=== PATIENT | female | born 1995 | race Caucasian/White ===

== ENCOUNTER 2022-10-28 14:45 | Outpatient (CLI) | payer BC, SELFPAY ==
--- NOTE | ~2022-10-28 | US_ITS ---
EXAMINATION: US pelvic complete w TV DATE: 10/28/2022 15:12 INDICATION: Pelvic and perineal pain. TECHNIQUE: Multiple transabdominal and transvaginal sonographic images of the pelvis were obtained. COMPARISON: None. FINDINGS: TRANSABDOMINAL ULTRASOUND: The uterus measures 6.8 x 3.9 x 4.6 cm. There is no free fluid in the pelvis. TRANSVAGINAL ULTRASOUND: The endometrial complex measures 4 mm in thickness. The right ovary measures 2.8 x 1.8 x 1.6 cm. The left ovary measures 3.1 x 1.2 x 1.6 cm. There is normal vascular flow in the ovaries. IMPRESSION: 1. Normal pelvis. Reviewed, dictated and finalized at location A. D OPERATOR IMPRESSION: 1. Normal pelvis.
== END 2022-10-28 14:46 ==
PROVIDERS: PCP Family Medicine; Visit Provider Student in an Organized Health Care Education/Training Program
DX: R10.2 Pelvic and perineal pain (principal)
CPT/HCPCS: 76830; 76856

== ENCOUNTER 2022-12-07 00:38 | Day surgery (SDC) | payer BC, SELFPAY ==
[2022-11-29 08:27] VITALS: BMI 27.3
--- NOTE | 2022-11-29 08:32 | PC.NURSE ---
Report to the Outpatient Waiting Room, entrance under the green pavilion located off [facility], at time 0600 on date 12/07/22. Planned Procedure Time: 0730. Time changes happen often and if your time is changed the preop area will call you the afternoon before. - You and your visitor will be asked to self-screen and do not enter if you have any COVID symptoms. - Only one visitor is requested with a max of two and NO children visitors are allowed at this time. - The patient visitor may be requested to leave or wait in car when not with patient due to distancing restrictions. - A mask is optional within the hospital at this time. Patients may have clear liquids (water, carbonated beverages, clear teas, apple juice) until 3 hours prior to surgery with a maximum of 20 ounces. - No food from midnight until time of surgery Take the following medications with a SIP of water the morning of surgery: N/A DO NOT STOP ANY OF YOUR OTHER PRESCRIPTION MEDICATIONS PRIOR TO SURGERY EXCEPT THE FOLLOWING Medications to discontinue per physician: N/A Date to take last dose: N/A Please no make-up, nail italian, hairspray, perfume, deodorant, or body powder the day of surgery. No jewelry (including any body piercings) or valuables the day of surgery, leave them at home. Please take a shower or bath the night before, or the morning of, surgery with an antibacterial soap. Wear comfortable, loose fitting clothing. - Jewelry must be removed prior to entering the operating room. Rings and piercings that are not removed may be cut off. - The hospital will not accept responsibility for valuables. - Please leave all valuables, including medications, at home the day of surgery. If you are going home after surgery, a licensed sales driver must drive you home. - NO public transportation without another adult if you receive anesthesia. - We recommend that an adult stay with you for 24 hours following discharge. - We also recommend that you do not drive, make important decision, drink alcoholic beverages, or take any drugs that were not prescribed by your health care provider for at least 24 hours after your discharge time. Follow any additional instructions given to you from your surgeon. If you or anyone in your household have experienced Covid symptoms in the past week, please notify your surgeon or the nurse liaison at the phone number below for possible testing. Telephone instructions given to PT - JONATHON FARRAR and asked if any additional questions and then verbalized understanding. Patient advised to call surgeon office or pre surgery nurse liaison [phone] if any additional questions.
[2022-12-07] VITALS (8 sets, daily range): BP systolic 99–121; BP diastolic 53–84; PULSE 64–79; RESP 12–20; TEMP 36.2–36.4; O2SAT 100
[2022-12-07] MEDS: ACETAMINOPHEN 500 MG TABLET 1000 MG PO (06:30)
[2022-12-07] MEDS: KETOROLAC 15 MG/ML VIAL (*BKC) IV PUSH (06:30)
[2022-12-07] MEDS: LACTATED RINGERS 1,000 ML 30 ML IV CONT ×2 (06:30→09:38)
--- NOTE | 2022-12-07 06:38 | P.PNAN_ITS ---
Anes - Initial Pre Proc Eval Procedure: Operation Date: 12/07/22 07:30 Proposed Procedures p Diagnostic Laparoscopy - Eb Ferrera MD Date/Time: 12/07/22 06:38 Surgeon: Eb Ferrera MD Pre Op Diagnosis: Pelvic Perineal Pain Patient Data Age: 27 Gender: F Height: 1.57 m Weight: 68 kg Allergies Allergy/AdvReac Type Severity Reaction Status Date / Time No Known Allergies Allergy Unverified 11/29/22 08:26 Home Medications Medication Instructions Recorded Confirmed Type No Home Medications 11/29/22 11/29/22 History Patient hx anesthesia problems: post op nausea/vomiting Family hx anesthesia problems: none Results Review: All pre-operative results and documents have been reviewed as part of the pre- operative evaluation. [facility] Past Medical History Medical History Irregular periods Surgical History Surgical History History of gynecological procedure (05/09/22) nexplanon removal and reinsertion of new device Hx of cholecystectomy (~10/09/16) Social History Social History (Updated 06/15/22 @ 14:51 by Sis Thacker [facility]) Smoking packs per day: 0.5 Smoking cigarettes per day: 10.0 Years smoked: 5 Smoking pack-years: 2.50 Smoking status: Current every day smoker Tobacco type: cigarettes and e-cigarettes/vaping Additional smoking assessment comments: QUIT CIGARETTES 10/09/21, NOW VAPING Alcohol intake: current Drinks per week: 2 Substance use: never Substance use type: does not use Living arrangements: with family Additional living arrangements comments: BOYFRIEND & CHILDREN Occupation/Education: occupation Additional occupation/education comments: [email or web address] Gender identity (if verbalized by the patient): Female Sexual Orientation (if Verbalized by the Patient): Straight or Heterosexual Spiritual care concerns: No Anes - Eval Final PreProcedure Day of Procedure 12/07/22 06:38 Patient weight: overweight Heart: regular rate and rhythm Lungs: clear to auscultation Airway: Mallampati scale class III Neurological: alert and oriented Last oral intake: >/= 8 hours ASA classification: II Emergent: no Anesthetic plan: proceed Anesthesia type and monitoring: general ETT and standard monitoring Results Review: All pre-operative results and documents have been reviewed as part of the pre- operative evaluation. Informed Consent: The patient's anesthetic plan and its attendant risks and benefits were discussed with the patient/family/POA. Questions were solicited and answers provided to the satisfaction of the patient/family/POA.
[2022-12-07] MEDS: SCOPOLAMINE 1.5 MG PATCH TRANSDERM (06:49)
--- NOTE | 2022-12-07 07:10 | WPDHPUPDATE1 ---
History and Physical Update Update Date/Time: 12/07/22 07:10 History and Physical has been reviewed, including an updated exam of the patient. There are NO changes in the patient's condition. Risks, benefits, and alternatives have been discussed and questions answered. Patient agrees to proceed with procedure.
--- NOTE | 2022-12-07 09:45 | W.PM.PROC2 ---
Procedure Note - Detailed Date of Procedure 12/07/22 Pre-op Diagnosis Pelvic Perineal Pain Post-op Diagnosis Same ( endometriosis) Procedure Performed radical resection of endometriosis Surgeon Eb Ferrera MD Anesthesia General Indications pelvic pain Findings multiple endometriosis implants in the posterior cul-de-sac. Classic endometriosis with dark clusters of hemorrhagic tissue with surrounding scarring and vascularity, otherwise normal appearing uterus tubes and ovaries. Description of Procedure The patient was taken to the operating room. She was prepped and draped in the dorsal lithotomy position after induction general anesthesia. A 5 mm incision was made with a scalpel on the abdominal skin in the left upper quadrant of the abdomen. A 5 mm trocar was inserted into the intra-abdominal cavity under direct visualization the scope. In the same fashion a 5 mm left lower quadrant trocar was inserted and a 5 mm infraumbilical trocar was inserted. The ovaries were suspended. This was done using Alex-Araceli Endoclose needle and 0 Vicryl. The bilateral lower quadrants were pierced with the Alex-Araceli needle while being transilluminated. They were carrying an 0 Vicryl suture which was passed through the ovary bilaterally brought back out through the same incision/puncture site. They were held in place on the skin surface with a hemostat. A SEBASTIAN manipulator was placed in the intrauterine cavity using speculum and tenaculum. It was anteflexed. This revealed the entire posterior cul-de-sac clearly. The posterior cul-de-sac peritoneum was removed completely With the exception of the deepest cul-de-sac areas which were fulgurated And the peritoneum over the rectum. From the infundibulopelvic ligament and suspensory ligament ovary laterally to the rectum medially the peritoneum was caudal cephalad dimension was from the pelvic brim down to the uterine arteries Then cervix. This was done with sharp and blunt dissection and cautery. The ureters were dissected out and isolated. Areas in the deepest posterior cul-de-sac were cauterized. There was some endometriotic lesions in this area.Small in the broad ligament were created and dissection. These were closed with a 3-0 Monocryl suture The pelvis was irrigated. Copious amounts of irrigation were used. Interceed was placed over the dissected areas bilaterally. Two pieces were used. The pneumoperitoneum was reduced. The trocars were removed. Skin was closed with subcuticular 4 micro. The patient's incisions were covered with Dermabond. She was taken recovery room in stable condition. Sponge lap and needle counts were correct x2. Estimated Blood Loss -75.0 Urine Output -100.0 Complications No immediate complications Condition Stable Disposition Same day
[2022-12-07] MEDS: ONDANSETRON INJ 4 MG/2 ML VIAL IV PUSH (09:49)
[2022-12-07] MEDS: fentaNYL CITRATE INJ (*CRX) 100 MCG/2 ML VIAL 25 MCG IV PUSH ×5 (10:00→10:24)
[2022-12-07] MEDS: diphenhydrAMINE HCl INJ 50 MG/ML VIAL 25 MG IV PUSH (10:05)
== END 2022-12-07 11:38 | disposition home or self-care (01) ==
PROVIDERS: PCP Family Medicine; Visit Provider Obstetrics & Gynecology
PROC: (CPT 49320; principal; 2022-12-07 07:30)
DX: N80.329 Endometriosis of the posterior cul-de-sac, unspecified depth (principal); N80.30 Endometriosis of pelvic peritoneum, unspecified; R10.2 Pelvic and perineal pain; F17.290 Nicotine dependence, other tobacco product, uncomplicated
CPT/HCPCS: 58662; 88305; A9270; J0330; J1100; J1200; J1885; J2250; J2405; J2704; J2710; J3010; J7030; J7120

== ENCOUNTER 2022-12-29 22:15 | Inpatient (IN) | payer BC, SELFPAY ==
--- NOTE | ~2022-12-29 | CT_ITS ---
CT of the Abdomen and Pelvis: Indication: Abdominal pain, recent surgery for endometriosis Technique: 2.5 mm axial scans were obtained through the abdomen and pelvis following intravenous adm inistration of 100 cc of Omnipaque 350. Dose reduction technique was used on this scan by utilizing a utomated exposure control and iterative reconstruction technique. The dose-length product (DLP) was 4 27.34 mGy-cm. Findings: Scans through the lung bases are unremarkable. The liver, spleen, pancreas, adrenals and left kidney are within normal limits. 2 mm nonobstructing r ight renal stone noted. Mildly dilated common bile duct is likely related to prior cholecystectomy. N o evidence of aortic aneurysm. No lymphadenopathy. There is wall thickening of the distal sigmoid colon/rectum, presumably reactive. No bowel obstructio n evident. Images through the pelvis were performed. There is a 5.7 x 4.1 x 2.7 cm peripherally enhancing fluid collection with small air-fluid level in the pelvis consistent with abscess, which appears to be at t he lower uterine segment region. There is rounded somewhat masslike appearance of the region of the c ervix, measuring approximately 6 cm in diameter (axial image 154). Urinary bladder is somewhat displa marcy anteriorly, but otherwise unremarkable. Uterine fundus is unremarkable. There is mild infiltratio n of pelvic fat planes. Impression: 5.7 x 4.1 x 2.7 cm pelvic abscess, with extensive wall thickening of the distal sigmoid colon/rectum, as well as somewhat prominent masslike appearance of the cervical region. Diagnostic considerations include postoperative abscess given history of recent endometriosis surgery with reactive bowel wall thickening versus abscess related to underlying primary infectious/inflammatory colitis of the rectum /distal sigmoid colon. Correlate with any relevant clinical symptoms/history. Correlation with precis e timeframe of reported recent surgery would also be useful. Somewhat masslike appearance of the cervix. This could reflect postoperative change including possibl e hematoma. 2 mm nonobstructing right renal stone. Reviewed, dictated and finalized at location . Impression: 5.7 x 4.1 x 2.7 cm pelvic abscess, with extensive wall thickening of the distal sigmoid colon/rectum, as well as somewhat prominent masslike appearance of the cervical region. Diagnostic considerations include postoperative abscess given history of recent endometriosis surgery with reactive bowel wall thickening ve rsus abscess related to underlying primary infectious/inflammatory colitis of t he rectum/distal sigmoid colon. Correlate with any relevant clinical symptoms/h istory. Correlation with precise timeframe of reported recent surgery would als o be useful. Somewhat masslike appearance of the cervix. This could reflect postoperative ch elizabeth including possible hematoma. 2 mm nonobstructing right renal stone.
[2022-12-29 22:30] VITALS: PULSE 126
[2022-12-29 22:36] VITALS: BP 120/72; PULSE 145; RESP 18; TEMP 37.6; O2SAT 100
--- NOTE | 2022-12-29 22:44 | ECG_ITS ---
Measurements Intervals [place] Rate: 125 P: 40 NC: 112 QRS: 34 QRSD: 81 T: 20 QT: 308 QTc: 445 Interpretive Statements SINUS TACHYCARDIA WITH SHORT NC INTERVAL BORDERLINE T WAVE ABNORMALITY- INFERIOR LEADS BASELINE ARTIFACT- III ABNORMAL ECG NO PREVIOUS ECG AVAILABLE FOR COMPARISON Electronically Signed On 12-30-2022 6:36:43 CDT by Sherman Wallace D.O.
[2022-12-29 22:51] LABS: Hematocrit 42.9 % (37.0-47.0); Hemoglobin 14.6 g/dL (12.0-15.0); Mean Corpuscular Hemoglobin 31.9 pg (26-34); Mean Corpuscular Volume 93.7 fl (80-100); Mean Platelet Volume 8.7 fl (7.4-10.4); Platelet Count Result 302 k/mm3 (150-375); Red Blood Count 4.58 M/mm3 (4.2-5.4); Red Cell Distribution Width 11.4 % (11.5-14.5); White Blood Count 23.9 K/mm3 (4.5-10.0)
[2022-12-29 23:03] LABS: Alanine Aminotransferase 59 U/L (6-35); Albumin Level 4.6 g/dL (3.5-5.1); Alkaline Phosphatase 133 U/L (38-126); Anion Gap 12 mmol/L (8-16); Aspartate Amino Transferase 54 U/L (14-36); Bilirubin,Total 1.4 mg/dL (0.2-1.3); Blood Urea Nitrogen 8 mg/dL (7-17); Calcium 9.1 mg/dL (8.4-10.2); Carbon Dioxide 22 mmol/L (22-30); Chloride 104 mmol/L (98-107); Estimated Glomerular Filt Rate > 60; Glucose 117 mg/dL (65-110); Lipase 40 U/L (23-300); Potassium 3.7 mmol/L (3.4-5.0); Sodium 138 mmol/L (137-145)
[2022-12-29 23:34] LABS: Band Neutrophils Percent 5 % (0-6); Eosinophils Absolute Manual 0.71 K/mm3 (0.02-0.5); Eosinophils Percent Manual 3 % (0-4); Lymphocytes Absolute Manual 1.67 K/mm3 (1.1-4.5); Metamyelocytes Percent 2 %; Monocytes Absolute Manual 1.67 K/mm3 (0.1-0.90); Monocytes Percent Manual 7 % (3-9); Neutrophils Absolute Manual 19.35 K/mm3 (1.7-7.2); Neutrophils Percent Manual 76 % (46-73); Platelet Estimate Adequate (Adequate); Total Cells Counted 100
[2022-12-29 23:35] LABS: Macrocytosis 2+ (NORMAL); Schistocytes None Seen (NORMAL); Spherocytes 2+ (NORMAL)
[2022-12-30] VITALS (22 sets, daily range): BP systolic 81–120; BP diastolic 37–81; PULSE 75–117; RESP 16–20; TEMP 36.4–38.6; O2SAT 80–100; BMI 27.8
[2022-12-30] MEDS: ONDANSETRON INJ 4 MG/2 ML VIAL IV PUSH ×4 (01:51→23:04)
[2022-12-30] MEDS: MORPHINE SULFATE (*CRX) 4 MG/ML INJ IV PUSH (01:51)
[2022-12-30] MEDS: SODIUM CHLORIDE 0.9% IV 1,000 ML 999 ML IV CONT ×2 (01:52→06:51)
[2022-12-30 02:29] LABS: Lactic Acid Reflex 1.6 mmol/L (0.7-2.0)
[2022-12-30 03:05] LABS: Appearance Urine Cloudy (Clear); Bacteria Urine 2+ /hpf; Bilirubin Urine 2+ (Negative); Blood Urine Negative (Negative); Color Urine Dark Yellow (Yellow); Glucose Urine UA Negative (Negative); Ketones Urine 3+ mg/dL (Negative); Leukocyte Esterase Ur 1+ LEU/UL (Negative); Mucus Urine Present /lpf; Nitrate Urine Negative (Negative); Protein Urine 1+ mg/dL (Negative); Specific Grav Ur 1.033 (1.001-1.035); Squamous Epithelial Cell Urine Moderate /hpf (Few); WBC Urine 21-50 /hpf; pH Urine 5.5 (5.0-9.0)
[2022-12-30 03:08] LABS: Add Urine Microscopic? YES
--- NOTE | 2022-12-30 03:57 | ED.GENADULT ---
HPI - General Adult General Chief complaint: Abdominal Pain Stated complaint: post op pain Time Seen by Provider: 12/30/22 01:34 History of Present Illness HPI narrative: Patient is a 27-year-old female who presents the emergency department with chief complaint of abdominal pain. Patient reports that she had recent surgery for endometriosis and has been taking pain medications the patient states she feels as though she was constipated and saw GI today patient reports that she had a rectal exam done that she did not show that she was impact and reports that she has continued to have severe abdominal discomfort. Patient reports she does get a lot of urinary tract infections Related Data Allergies Allergy/AdvReac Type Severity Reaction Status Date / Time No Known Allergies Allergy Verified 12/29/22 14:32 Review of Systems Review of Systems: A 10 system review of systems was completed on the patient and is negative except for what is stated in the HPI. Nursing and ancillary documentation was reviewed. PMFSH Past Medical History Medical History Constipation due to opioid therapy Endometriosis determined by laparoscopy Irregular periods Surgical History Surgical History History of gynecological procedure (05/09/22) nexplanon removal and reinsertion of new device Hx of cholecystectomy (~10/09/16) Social History Social History Smoking packs per day: 0.5 Smoking cigarettes per day: 10.0 Years smoked: 5 Smoking pack-years: 2.50 Smoking status: Current every day smoker Tobacco type: cigarettes and e-cigarettes/vaping Additional smoking assessment comments: QUIT CIGARETTES 10/09/21, NOW VAPING Alcohol intake: current Drinks per week: 2 Substance use: never Substance use type: does not use Living arrangements: with family Additional living arrangements comments: BOYFRIEND & CHILDREN Occupation/Education: occupation 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 HEAD: Normocephalic, atraumatic. EYES: PERRLA and EOMI. ENT: Nares clear, no rhinorrhea or epistaxis. Mucous membranes moist. NECK: Supple. CHEST: Clear to auscultation. No respiratory distress. HEART: Regular rate and rhythm. No murmur heard. Normal peripheral pulses. ABDOMEN: Soft, diffuse tenderness throughout the abdomen, nondistended, normal active bowel sounds. EXTREMITIES: Normal range of motion. No edema. SKIN: Warm, dry, no rash. NEURO: No focal deficits. Alert and oriented x3. PSYCH: Normal mood and affect. Course Vital Signs Vital signs: Vital Signs Pulse Rate 126 H 12/29/22 22:30 Temperature 37.6 C 12/29/22 22:36 Pulse Rate 117 H 12/30/22 01:55 Respiratory Rate 20 12/30/22 01:55 Blood Pressure 98/67 L 12/30/22 01:55 Pulse Oximetry 99 12/30/22 01:55 Oxygen Delivery Room Air 12/29/22 22:36 Medical Decision Making [facility] Narrative Medical decision making narrative: Differential diagnosis includes intra-abdominal abscess, colitis, diverticulitis, UTI, pyelonephritis, ureterolithiasis Laboratory studies showed a white blood cell count of 23.9 patient had a normal lactate liver enzymes were slightly elevated with an AST of 54 and an ALT of 59 bilirubin was 1.4 urinalysis showed 21-50 white blood cells in the urine with 2+ bacteria and 1+ leukocyte esterase CT scan of the abdomen pelvis showed evidence of a abscess present causing mass effect on the uterus. Patient was initially given a dose of Rocephin in the emergency department as she had a UTI present on h
[2022-12-30] MEDS: PIPERACILLN/TAZ 3.375GM/NS50ML 3.375 GM/50 ML BAG IVPB ×2 (05:45→11:27)
[2022-12-30] MEDS: PROCHLORPERAZINE EDISYLATE 10 MG/2 ML VIAL IV PUSH (05:45)
[2022-12-30] MEDS: HYDROmorphone HCL INJ (*CRX) 1 MG/ML SYR IV PUSH (05:45)
[2022-12-30] MEDS: SODIUM CHLORIDE 0.9% IV 1,000 ML 125 ML IV CONT (06:41)
--- NOTE | 2022-12-30 07:05 | PM.IMHP ---
H&P: HPI History of Present Illness Date/Time: 12/30/22 07:05 Chief Complaint: lower back pain Narrative: Betina Shrestha is a 27 yo female with recent radial resection endometriosis on 12/07/[address] Reyes. She presented to the ED for evaluation of abdominal pain. The patient was seen by Dr. Kraus yesterday 12/29/22 for evaluation of similar complaints and concern for constipation. Rectal exam was negative for impaction. She was prescribed Linzess and 4-6 week follow up. She reports the pain is sharp and aching in her lower back and radiates to her buttock region. She has associated right and left lower abdomen pain that has been present since her surgery. She reports fever for approximately 3 days, temp max 101F oral, chills, malaise, myalgias, nausea, vomiting, decrease oral intake for the past 2 days, hot sensation with urination and urinary frequency. She has had 2 hard stools since surgery on 12/07/22 and has taken a laxative chocolate bar, x-lax, other OTC stool softners, mag citrate, and suppository with some liquid stool in the past 24 hours. Of note, she had been taking oxycodone and toradol PO following surgery, but is no longer taking. Fevers improve with OTC acetaminophen. In the ED, vitals were temp 37.6C oral, HR 117, RR 20, BP 98/67, spO2 99% room air. Lab work showed leukocytosis 23.9, Tbili 1.4, AST 54, ALT 59, alk phos 133, UA with 1+ leukocytes, WBC 21-50, 2+ bacteria, and moderate squamous cells. CT abdomen and pelvis 5.7 x4.1 x2.7 cm pelvic abscess with extensive wall thickening of distal sigmoid colon/rectum with masslike appearance of cervix suggesting possible postop abscess versus abscess related to colitis and 2 mm nonobstructing right renal stone. She was treated with IV NS 1 liter, zofran 4 mg IV x1, compazine 10 mg IV x1, Rocephin 1 gram IV x1 for possible UTI, and Zosyn 3.375 IV x1. She was admitted for IV antibiotics for sepsis and abdominal abscess. Review of Systems Review of Systems: All systems reviewed & are unremarkable except as noted in HPI and below PMFSH Past Medical History Medical History (Updated 12/30/22 @ 14:25 by Leonel Valenzuela MD) Asthma In childhood, resolved. Constipation Constipation due to opioid therapy Endometriosis determined by laparoscopy Irregular periods Nausea and vomiting in adult Pelvic pain Surgical History Surgical History (Updated 12/30/22 @ 10:50 by Corrina Chun APRN) History of gynecologic surgery Radical resection of endometriosis 12/07/22 History of gynecological procedure (05/09/22) nexplanon removal and reinsertion of new device Hx of cholecystectomy (~10/09/16) Family History Family History (Updated 12/30/22 @ 10:50 by Corrina Chun APRN) Mother Multiple sclerosis Social History Social History (Updated 12/30/22 @ 10:51 by Corrina Chun APRN) Smoking packs per day: 0.5 Smoking cigarettes per day: 10.0 Years smoked: 5 Smoking pack-years: 2.50 Smoking status: Former smoker Tobacco type: cigarettes and e-cigarettes/vaping Smoking end date: 10/09/21 Additional smoking assessment comments: QUIT CIGARETTES 10/09/21, NOW VAPING Alcohol intake: current Drinks per week: 2 Alcohol use details: social Substance use: never Substance use type: does not use Lack of Transportation: No Lack of Food: Never True Current Housing: I Have Housing Concerned About Future Housing: No Difficulty Paying Gas/Electric Bills: No Difficulty Paying for Meds: No Currently Unemployed: No Education: High School Diploma/GED Difficulty w/ Childcare or Family Care: No Living arrangements: with family Additional living arrangements comments: Lives with boyfriend and children Occupation/Education: occupation 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
[2022-12-30 08:33] LABS: CRP 23.7 mg/dL (<1.0)
[2022-12-30 08:40] LABS: Procalcitonin 7.4 ng/mL
--- NOTE | 2022-12-30 08:49 | PC.NURSE ---
Upon change of shifts, pt was given 1000mL bolus due to decreased BP. At completion of bolus, pt's BP was 95/55. Provider notified. Instructed to check vitals Q4 and PRN including the use of manual BP.
[2022-12-30] MEDS: KETOROLAC 30 MG/ML VIAL (*BKC) IV PUSH (12:45)
--- NOTE | 2022-12-30 13:17 | PC.NURSE ---
Pt was complaining of 9/10 pain. Pt's most recent BP was 91/64. Only pain med currently available was 2mg morphine. Hospitalist contacted for orders. Orders given to administer one time dose of 30mg Tordol. Upon assessing pt, I observed her face and eyes were edematous. Pt was c/o being hot and having chills simultaneously. I took pt's temp which was 99.8.
--- NOTE | 2022-12-30 14:17 | WPDGICN ---
Assessment and Plan Assessment and plan (1) Abscess of pelvis: Status: Acute Assessment and Plan: most likely from recent surgical intervention interventional radiology to attempt drainage pilot supervisor-onc will reassess patient iv antibiotics no need of colonoscopy at least right now (findings of inflammation of sigmoid is related to pelvic infection) (2) Pelvic pain: Code(s): R10.2 - Pelvic and perineal pain Status: Acute Assessment and Plan: pelvic abscess and previous history of endometriosis with surgery (3) Nausea and vomiting in adult: Code(s): R11.2 - Nausea with vomiting, unspecified Status: Acute Assessment and Plan: medical treatment (4) Endometriosis determined by laparoscopy: Code(s): N80.9 - Endometriosis, unspecified Status: Acute (5) Leukocytosis: Code(s): D72.829 - Elevated white blood cell count, unspecified Status: Acute (6) Transaminitis: Code(s): R74.01 - Elevation of levels of liver transaminase levels Status: Acute Assessment and Plan: from systemic infection (7) Constipation: Code(s): K59.00 - Constipation, unspecified Status: Acute Assessment and Plan: multifactorial from pelvic surgery/infection with abscess/narcotics, etc GI Consult Note Consult date/time: 12/30/22 14:17 Reason for consult: pelvic pain and constipation HPI: Betina Shrestha is a 27 year old female with recent radical resection endometriosis on 12/07/[address] Reyes (findings of multiple endometriosis implants in the posterior cul-de-sac.? Classic endometriosis with dark clusters of hemorrhagic tissue with surrounding scarring and vascularity, otherwise normal appearing uterus tubes and ovaries) Patient says since surgery has slowly feeling worse with more pelvic pain and actually yesterday she came to see me to the office because new onset of constipation (has been using laxatives and other OTC laxatives at home), only had 2 BM's since surgery (previous to surgery she was not having problem with constipation). I performed rectal exam and did not feel stool impaction and gave sample of linzess (patient used oxy twice daily for first week afer surgery). She never had a colonoscopy or previous history of GI issues. She took one dose of linzess and then had more pelvic pain, also says that has been having low grade fever (yesterday in the office her temperature was normal 98). Finally she came to the ED, fever 101F oral, also chills and nausea with vomiting, HR 117. Lab work showed leukocytosis 23.9, Tbili 1.4, AST 54, ALT 59, alk phos 133, UA with 1+ leukocytes, WBC 21-50, 2+ bacteria, and moderate squamous cells. CT abdomen and pelvis 5.7 x4.1 x2.7 cm pelvic abscess with extensive wall thickening of distal sigmoid colon/rectum with masslike appearance of cervix suggesting possible postop abscess versus abscess related to colitis and 2 mm nonobstructing right renal stone. Patient was admitted, given iv antibiotics and pain meds. Review of Systems Constitutional: Constitutional: Reports chills, Reports fatigue and Reports fever(s) Eyes: Eyes: Denies blurry vision ENT: Reports Normal hearing present Cardiovascular: Cardiovascular: Denies chest pain Respiratory: Respiratory: Denies cough Gastrointestinal: Gastrointestinal: Reports abdominal pain and Reports nausea Genitourinary: Genitourinary: Reports pelvic pain Musculoskeletal: Musculoskeletal: Reports myalgias Integumentary/Breasts: Skin/Breast: Denies rash Neurologic: Denies Abnormal speech present Psychiatric: Psychiatric: Denies behavioral changes [facility] Past Medical History Medical History (Updated 12/30/22 @ 14:25 by Leonel Valenzuela MD) Asthma In childhood, resolved. Constipation Constipation due to opioid therapy Endometriosis determined by laparoscopy Irregular periods Nausea and vomiting in adult Pelvic pain Surgical History Surgical H
--- NOTE | 2022-12-30 15:19 | WPDANESEPPF ---
Anes - Initial Pre Proc Eval Procedure: Operation Date: 12/30/22 16:30 Proposed Procedures p Diagnostic Laparoscopy - Eb Ferrera MD Date/Time: 12/30/22 15:19 Surgeon: Chris Aj MD Pre Op Diagnosis: Colitis,Pelvic Abscess,Leukocytosis Patient Data Age: 27 Gender: F Height: 1.57 m Weight: 69.1 kg Last Vital Signs Temp 38.6 C H 12/30/22 13:25 Pulse 114 H 12/30/22 13:25 Resp 17 12/30/22 13:25 BP 90/68 L 12/30/22 14:55 Pulse Ox 96 12/30/22 13:25 O2 Del Method Room Air 12/30/22 08:10 Allergies Allergy/AdvReac Type Severity Reaction Status Date / Time No Known Allergies Allergy Verified 12/30/22 06:46 Home Medications Medication Instructions Recorded Confirmed Type No Home Medications 12/30/22 12/30/22 History Laboratory Tests 12/29/22 12/29/22 12/30/22 22:45 22:45 01:30 WBC 23.9 K/mm3 H K/mm3 (4.5-10.0) RBC 4.58 M/mm3 M/mm3 (4.2-5.4) Hgb 14.6 g/dL g/dL (12.0-15.0) Hct 42.9 % % (37.0-47.0) MCV 93.7 fl fl (80-100) MCH 31.9 pg pg (26-34) MCHC 34.0 g/dl g/dl (32-36) RDW 11.4 % L % (11.5-14.5) Plt Count 302 k/mm3 k/mm3 (150-375) MPV 8.7 fl fl (7.4-10.4) Immature Gran % (Auto) Not Reportable Neut % (Auto) Not Reportable Lymph % (Auto) Not Reportable [place] % (Auto) Not Reportable Eos % (Auto) Not Reportable Baso % (Auto) Not Reportable Lymph # (Auto) Not Reportable [place] # (Auto) Not Reportable Eos # (Auto) Not Reportable Baso # (Auto) Not Reportable Abs Immat Gran (auto) Not Reportable Absolute Neuts (auto) Not Reportable Absolute Nucleated RBC Not Reportable Total Counted 100 Neutrophils % (Manual) 76 % H % (46-73) Band Neutrophils % 5 % % (0-6) Lymphocytes % (Manual) 7.0 % L % (18-44) Monocytes % (Manual) 7 % % (3-9) Eosinophils % (Manual) 3 % % (0-4) Metamyelocytes % 2 % % Nucleated RBC % Not Reportable Abs Neuts (Manual) 19.35 K/mm3 H K/mm3 (1.7-7.2) Abs Lymphs (Manual) 1.67 K/mm3 K/mm3 (1.1-4.5) Abs Monocytes (Manual) 1.67 K/mm3 H K/mm3 (0.1-0.90) Absolute Eos (Manual) 0.71 K/mm3 H K/mm3 (0.02-0.5) Platelet Estimate Adequate (Adequate) Macrocytosis 2+ (NORMAL) Spherocytes 2+ (NORMAL) Schistocytes None seen (NORMAL) Sodium 138 mmol/L mmol/L (137-145) Potassium 3.7 mmol/L mmol/L (3.4-5.0) Chloride 104 mmol/L mmol/L (98-107) Carbon Dioxide 22 mmol/L mmol/L (22-30) Anion Gap 12 mmol/L mmol/L (8-16) BUN 8 mg/dL mg/dL (7-17) Creatinine 0.80 mg/dL mg/dL (0.7-1.0) Estim Creat Clear Calc Not Reportable Estimated GFR > 60 (59 - ) Glucose 117 mg/dL H mg/dL (65-110) Lactic Acid Calcium 9.1 mg/dL mg/dL (8.4-10.2) Total Bilirubin 1.4 mg/dL H mg/dL (0.2-1.3) AST 54 U/L H U/L (14-36) ALT 59 U/L H U/L (6-35) Alkaline Phosphatase 133 U/L H U/L (38-126) C-Reactive Protein Total Protein 8.0 g/dL g/dL (6.3-8.2) Albumin 4.6 g/dL g/dL (3.5-5.1) Lipase 40 U/L U/L (23-300) Procalcitonin Urine Color Dark yellow (Yellow) Urine Appearance Cloudy H (Clear) Urine pH 5.5 (5.0-9.0) Ur Specific [place] 1.033 (1.001-1.035) Urine Protein 1+ mg/dL H mg/dL (Negative) Urine Glucose (UA) Negative mg/dL mg/dL (Negative) Urine Ketones 3+ mg/dL H mg/dL (Negative) Ur Blood (Man) Negative (Negative
--- NOTE | 2022-12-30 15:26 | WPDHPUPDATE1 ---
History and Physical Update Update Date/Time: 12/30/22 15:26 27-year-old female with a pelvic abscess Who had laparoscopic surgery about 3 weeks ago. We have agreed to perform diagnostic laparoscopy. We will likely drain abscess and clear up some a adhesions. She understands the risks, benefits, and alternatives. She has completed the informed consent process is ready to proceed. History and Physical has been reviewed, including an updated exam of the patient. There are NO changes in the patient's condition. Risks, benefits, and alternatives have been discussed and questions answered. Patient agrees to proceed with procedure.
[2022-12-30] MEDS: LACTATED RINGERS 1,000 ML 30 ML IV CONT ×3 (15:40→17:44)
[2022-12-30] MEDS: ceFAZolin SODIUM 1 GM VIAL 3 GM (16:18)
--- NOTE | 2022-12-30 16:46 | W.PM.PROC2 ---
Procedure Note - Detailed Date of Procedure 12/30/22 Pre-op Diagnosis Colitis,Pelvic Abscess,Leukocytosis Post-op Diagnosis Same Procedure Performed Diagnostic laparoscopy Surgeon Eb Ferrera MD Anesthesia General Indications Pelvic pain Description of Procedure The patient was taken to the operating room. She was prepped and draped in the dorsal lithotomy position after induction general anesthesia. A 5 mm incision was made with a scalpel on the abdominal skin in the left upper quadrant of the abdomen. A 5 mm trocar was inserted into the intra-abdominal cavity under direct visualization the scope. In the same fashion a 5 mm left lower quadrant trocar was inserted and a 5 mm infraumbilical trocar was inserted. Adhesiolysis was performed down to the level of pelvis. It was mild easily broken down adhesions between the rectum and the left adnexa. The rectum was from the posterior aspect of the cervix. There was a collection of pus in the lower pelvis. This was drained and irrigated. Copious antibiotic irrigation was used to lavage the area of the abscess repetitively. The pelvis was irrigated. The pneumoperitoneum was reduced. The trocars were removed. Skin was closed with subcuticular 4 micro. The patient's incisions were covered with Dermabond. She was taken recovery room in stable condition. Sponge lap and needle counts were correct x2. Complications No immediate complications Condition Stable Disposition Same day
--- NOTE | 2022-12-30 17:46 | SUR.PHASEI ---
1730- Albina BRICK CHIMNEY SUPERVISOR notified of patient's sbp <90. instructed to give remainder of liter of LR.
[2022-12-30] MEDS: ACETAMINOPHEN 325 MG TABLET 650 MG PO (20:56)
[2022-12-30] MEDS: SODIUM CHLORIDE 0.9% IV 1,000 ML 100 ML IV CONT (23:04)
[2022-12-30] MEDS: PIPERACILLIN/TAZOBACTAM SOD 4.5 GM in SODIUM CHLORIDE 0.9% IV 100 ML 200 ML IVPB (23:05)
[2022-12-30] MEDS: MORPHINE SULFATE (*CRX) 2 MG/ML INJ IV PUSH (23:05)
[2022-12-31] VITALS (7 sets, daily range): BP systolic 92–107; BP diastolic 54–70; PULSE 64–99; RESP 16–18; TEMP 36.1–37.3; O2SAT 96–99
[2022-12-31] MEDS: PIPERACILLIN/TAZOBACTAM SOD 4.5 GM in SODIUM CHLORIDE 0.9% IV 100 ML 200 ML IVPB ×3 (06:11→17:27)
[2022-12-31 07:13] LABS: Basophils Percent Auto 0.2 % (0.2-1.2); Hematocrit 31.3 % (37.0-47.0); Hemoglobin 10.6 g/dL (12.0-15.0); Immature Granulocyte Absolute 0.14 K/mm3 (0.00-0.031); Immature Granulocyte Percent A 0.8 % (0-0.5); Lymphocytes Absolute Auto 0.97 K/mm3 (0.9-3.2); Lymphocytes Percent Auto 5.5 % (18.3-44.2); Mean Corpuscular HGB Conc 33.9 g/dl (32-36); Mean Corpuscular Hemoglobin 32.3 pg (26-34); Mean Corpuscular Volume 95.4 fl (80-100); Mean Platelet Volume 8.7 fl (7.4-10.4); Monocytes Absolute Auto 0.9 K/mm3 (0.1-0.6); Monocytes Percent Auto 4.8 % (2.6-8.5); Neutrophils Absolute Auto 15.6 K/mm3 (1.3-6.7); Neutrophils Percent Auto 88.7 % (45.5-73.1); Platelet Count Result 207 k/mm3 (150-375); Red Blood Count 3.28 M/mm3 (4.2-5.4); Red Cell Distribution Width 11.8 % (11.5-14.5); White Blood Count 17.6 K/mm3 (4.5-10.0)
[2022-12-31 07:37] LABS: Alanine Aminotransferase 26 U/L (6-35); Albumin Level 2.9 g/dL (3.5-5.1); Alkaline Phosphatase 81 U/L (38-126); Anion Gap 5 mmol/L (8-16); Aspartate Amino Transferase 15 U/L (14-36); Bilirubin,Total 0.5 mg/dL (0.2-1.3); Blood Urea Nitrogen 5 mg/dL (7-17); Calcium 7.5 mg/dL (8.4-10.2); Carbon Dioxide 22 mmol/L (22-30); Chloride 110 mmol/L (98-107); Estimated CRCL calculation 110 ml/min; Estimated Glomerular Filt Rate > 60; Glucose 115 mg/dL (65-110); Potassium 3.4 mmol/L (3.4-5.0); Sodium 137 mmol/L (137-145)
[2022-12-31] MEDS: ACETAMINOPHEN 325 MG TABLET 650 MG PO (08:21)
[2022-12-31] MEDS: MORPHINE SULFATE (*CRX) 2 MG/ML INJ IV PUSH (08:22)
--- NOTE | 2022-12-31 08:26 | PM.IMPN ---
Progress Note: A&P Assessment and Plan (1) Sepsis: Code(s): A41.9 - Sepsis, unspecified organism Status: Acute Assessment and Plan: HR 115, SBP 84, WBC 23, and CT abd/pelvis with concern for abdominal abscess from colitis versus recent surgery. Hypotension my be secondary to narcotics, but raises concerns for severe sepsis. Lactic acid 1.6 Given 1 L NS fluids in ED. Additional 1 L NS given upon admission to the floor for 30 mL/kg resuscitation. Continue aggressive IV hydration. Continue broad-spectrum IV antibiotics Vancomycin and Zosyn Monitor hemodynamics- VSS but BP soft Blood cultures without growth after 24 hours. (2) Abscess of pelvis: Status: Acute Assessment and Plan: Continue IV antibiotics Attempted IR percutaneous drain placement, however, per Radiology, given location would need transvaginal route. Discussed with Dr. Ferrera. Patient and boyfriend updated. POD1 laparoscopy with abscess drainage (3) Colitis: Code(s): K52.9 - Noninfective gastroenteritis and colitis, unspecified Status: Acute Assessment and Plan: GI consulted. Continue IV antibiotics. Colonoscopy not indicated at this time per GI. (4) Transaminitis: Code(s): R74.01 - Elevation of levels of liver transaminase levels Status: Acute Assessment and Plan: Likely secondary to dehydration and sepsis Trend LFTs Resolved and presumed secondary to hypotension and sepsis. (5) Abnormal urinalysis: Code(s): R82.90 - Unspecified abnormal findings in urine Status: Acute Assessment and Plan: UA with 1+ leukocytes, WBC 21-50, 2+ bacteria, and moderate squamous cells. Given many squamous cells likely contamination. Patient has lower abdominal pain and back pain worse on the right, but this is more likely secondary to abscess. Currently on broad spectrum IV antibiotics for above. Urine culture pending. Plan CODE STATUS: FULL CODE Disposition: patient is from home. Diet: Regular diet GI prophylaxis: PPI Antibiotic: Day 2 Time Spent With Patient Time with patient: 25 - 35 minutes Subjective Date/time seen: 12/31/22 08:26 She is feeling better today. Back and lower abdomen pain is improving. She denies fever, chills, rigors since surgery yesterday for abscess drainage. No BM this hospital stay. She denies N/V. Review of Systems Review of Systems: All systems reviewed & are unremarkable except as noted in HPI and below Exam Narrative: General: Mildly ill-appearing adult female. Lying in bed. Neuro/Psych: Awake, alert and oriented x4 with clear speech. Pleasant and cooperative. No focal sensory or motor deficits. CN 2-12 grossly intact. Skin: fair, warm, dry and intact without rashes or lesions. No open wounds. Poor turgor.?Multiple tattoos. HEENT: Sclera is non-icteric. Pupils equal and round. Oral mucosa pink and moist. Neck: Supple. No JVD. Heart: S1 and S2 regular rate and rhythm. No murmurs, gallops, or rubs auscultated. Chest: Respirations even and unlabored. Lung sounds are clear to auscultation without wheezes, rhonchi, or rales. Abdomen: Soft, mildly distended, diffusely tender to palpation Lap sites x3 open to air with dermabond. Extremities:? No edema, erythema or calf tenderness. Grossly normal ROM. Radial and dorsalis pedis pulses +2 bilaterally. Objective Data Vital Signs Vital Signs: Vital Signs - 24 hr 12/30/22 11:30 12/30/22 12:56 12/30/22 13:25 Temperature 98.7 F 99.8 F H 101.5 F H Pulse Rate 104 H 114 H Respiratory Rate 16 17 Blood Pressure 91/64 L 81/55 L Pulse Oximetry 100 96 Oxygen Delivery Oxygen Flow Rate 12/30/22 14:55 12/30/22 15:35 12/30/22 16:39 Temperature 99.1 F 97.6 F Pulse Rate 97 99 Respiratory Rate 16 18 Blood Pressure 90/68 L 93/57 L 96/65 L Pulse Oximetry 98 100 Oxygen Delivery Room Air Simple Face Mask Oxygen Flow Rate 8 12/30/22 16:45 12/30/22 17:00 12/30/22 17:15
--- NOTE | 2022-12-31 08:33 | PM.GYNPNOP ---
UX RESEARCHER - A/P Assessment and plan (1) Pelvic abscess: Status: Acute Assessment and Plan: improved pain, improved malaise, continuing IV antibiotics, good pain control, postop day 1 from laparoscopic incision and drainage of pelvic abscess with adhesiolysis and lavage of abscess cavity with antibiotic irrigation. Much improved clinically with the exception of a white count. Postoperative Procedures: Procedures Operation Date: 12/30/22 16:30 Actual Procedure Side Surgeon p Diagnostic Laparoscopy Not Applicable Eb Ferrera MD Postoperative day: 1 Postoperative status: doing well Postoperative plan: see orders Time Spent With Patient Time: Total time spent is greater than 50% in coordination of care (as documented) at patient's floor/unit and/or counseling patient: Time with patient: 15 - 25 minutes UX RESEARCHER- PN:Anthony Post-Op Subjective Date/time seen: 12/31/22 08:33 Subjective: patient reports feeling better, patient has no complaints and pain is well controlled Exam Const: General: healthy appearing, comfortable and no acute distress Resp: Auscultation: clear to auscultation bilaterally, no rales, no rhonchi and no wheezes Cardio: Rate: regular rate Heart sounds: no click, no murmurs and no rubs GI: Inspection: non-distended Auscultation: normal bowel sounds Extrem: General: normal to inspection, no pedal edema and no calf tenderness UX RESEARCHER - PN: Obj Data Vital Signs Vital Signs: Vital Signs - 24 hr 12/30/22 11:30 12/30/22 12:56 12/30/22 13:25 Temperature 98.7 F 99.8 F H 101.5 F H Pulse Rate 104 H 114 H Respiratory Rate 16 17 Blood Pressure 91/64 L 81/55 L Pulse Oximetry 100 96 Oxygen Delivery Oxygen Flow Rate 12/30/22 14:55 12/30/22 15:35 12/30/22 16:39 Temperature 99.1 F 97.6 F Pulse Rate 97 99 Respiratory Rate 16 18 Blood Pressure 90/68 L 93/57 L 96/65 L Pulse Oximetry 98 100 Oxygen Delivery Room Air Simple Face Mask Oxygen Flow Rate 8 12/30/22 16:45 12/30/22 17:00 12/30/22 17:15 Temperature Pulse Rate 85 83 84 Respiratory Rate 18 17 17 Blood Pressure 93/55 L 94/66 L 87/62 L Pulse Oximetry 100 96 96 Oxygen Delivery Simple Face Mask Room Air Room Air Oxygen Flow Rate 8 12/30/22 17:30 12/30/22 17:45 12/30/22 18:00 Temperature Pulse Rate 87 82 82 Respiratory Rate 17 16 16 Blood Pressure 83/52 L 85/61 L 90/59 L Pulse Oximetry 95 80 L 94 Oxygen Delivery Room Air Room Air Room Air Oxygen Flow Rate 12/30/22 18:15 12/30/22 18:30 12/30/22 18:45 Temperature 97.5 F L 97.8 F Pulse Rate 75 95 98 Respiratory Rate 16 17 17 Blood Pressure 89/65 L 97/64 L 91/56 L Pulse Oximetry 94 93 93 Oxygen Delivery Room Air Oxygen Flow Rate 12/30/22 19:30 12/30/22 20:30 12/31/22 00:30 Temperature 98.3 F 98.2 F 99.1 F Pulse Rate 100 104 H 99 Respiratory Rate 20 16 16 Blood Pressure 114/81 101/70 107/61 Pulse Oximetry 96 95 96 Oxygen Delivery Oxygen Flow Rate 12/31/22 05:54 Temperature 97.6 F Pulse Rate 82 Respiratory Rate 18 Blood Pressure 93/62 L Pulse Oximetry 98 Oxygen Delivery Oxygen Flow Rate Intake/Output Intake/Output: Intake & Output 12/28/22 12/29/22 12/30/22 12/31/22 23:59 23:59 23:59 23:59 Intake Total 4950 350 Output Total 25 Balance 4925 350 Meds/Results Medications: Active Medications Generic Name Dose Route Start Last Admin Trade Name Freq PRN Reason Stop Dose Admin Acetaminophen 650 mg 12/30/22 14:00 12/31/22 08:21 Acetaminophen 325 Mg Tablet PO 650 mg Q6H RIA Administration Bisacodyl 5 mg 12/31/22 08:24 Bisacodyl 5 Mg Tablet Ec PO QAM PRN Constipation Sodium Chloride 1,000 mls @ 125 mls/hr 12/30/22 05:25 12/31/22 08:04 Normal Saline Iv IV CONT Not Given .Q8H RIA Vancomycin HCl 1,250 mg in 250 mls @ 166.667 mls/hr 12/30/22 20:00 12/31/22 08:10 Vancomycin 1,250 Mg/D5w 250 Ml IVPB 0 mls/hr Q12H RIA Infusion Piperacillin Sod/Tazo
[2022-12-31] MEDS: HYDROcodone/acetaminophen (*CRX) 5-325 MG TABLET 1 TAB PO ×2 (15:11→21:21)
[2022-12-31] MEDS: SODIUM CHLORIDE 0.9% IV 1,000 ML 125 ML IV CONT (15:11)
[2022-12-31 19:53] LABS: Vancomycin Trough 14.1 ug/mL (10.0-20.0)
--- NOTE | 2022-12-31 20:33 | WPDGIPROGNO ---
Progress Note: A&P Assessment and Plan (1) Sepsis: Code(s): A41.9 - Sepsis, unspecified organism Status: Acute Assessment and Plan: treated and much better since surgery on antibiotics will [place], call if questions (2) Pelvic abscess: Status: Acute Assessment and Plan: drained by moth exterminator, successful procedure (3) Nausea and vomiting in adult: Code(s): R11.2 - Nausea with vomiting, unspecified Status: Acute Assessment and Plan: resolved now she is eating (4) Abdominal pain: Code(s): R10.9 - Unspecified abdominal pain Status: Acute Assessment and Plan: much better (5) Leukocytosis: Code(s): D72.829 - Elevated white blood cell count, unspecified Status: Acute (6) Constipation: Code(s): K59.00 - Constipation, unspecified Status: Acute Assessment and Plan: from infection and surgery I will anticipate that will back to her normal soon follow-up only as needed Subjective Date/time seen: 12/31/22 20:33 Interval history: she is doing much better after surgery and drain of abscess, eating and less pain. She is comfortable Review of Systems Review of Systems: All systems reviewed & are unremarkable except as noted in HPI and below Exam Const: General: healthy appearing, comfortable and no acute distress HENMT: Face/Nose/Sinus: Normal nares present Eyes: General: appearance normal, both eyes and all related structures Neck: Neck: supple Resp: Auscultation: clear to auscultation bilaterally, no rales, no rhonchi and no wheezes Cardio: Rate: regular rate Heart sounds: no click, no murmurs and no rubs GI: Inspection: non-distended GI Palp: Yes Soft to palpation, No Tenderness to palpation present (GI) and No Guarding due to palpation present (GI) Auscultation: normal bowel sounds Skin: General skin exam: normal color Neuro: Speech: normal speech Motor exam (neuro): 5/5 motor strength present throughout Extrem: General: normal to inspection, no pedal edema and no calf tenderness Psych: Affect: normal affect Objective Data Vital Signs Vital Signs: Vital Signs - 24 hr 12/31/22 00:30 12/31/22 05:54 12/31/22 08:20 Temperature 99.1 F 97.6 F Pulse Rate 99 82 Respiratory Rate 16 18 Blood Pressure 107/61 93/62 L Pulse Oximetry 96 98 Oxygen Delivery Room Air 12/31/22 10:00 12/31/22 14:00 12/31/22 18:00 Temperature 97 F L 97 F L 97 F L Pulse Rate 93 64 73 Respiratory Rate 17 17 17 Blood Pressure 94/69 L 94/68 L 96/70 L Pulse Oximetry 98 99 99 Oxygen Delivery Intake/Output Intake/Output: Intake & Output 12/28/22 12/29/22 12/30/22 12/31/22 23:59 23:59 23:59 23:59 Intake Total 4950 2950 Output Total 25 Balance 4925 2950 Meds/Results Medications: Active Medications Generic Name Dose Route Start Last Admin Trade Name Freq PRN Reason Stop Dose Admin Acetaminophen 650 mg 12/31/22 10:57 Acetaminophen 325 Mg Tablet PO Q4H PRN Mild Pain (1-3) or Fever Hydrocodone Bitart/Acetaminophen 1 tab 12/31/22 10:55 12/31/22 15:11 Hydrocodone/Acetaminophen (*Crx) 5-325 Mg Tablet PO 1 tab Q4H PRN Administration Pain Rated 4-6 Bisacodyl 5 mg 12/31/22 08:24 Bisacodyl 5 Mg Tablet Ec PO QAM PRN Constipation Sodium Chloride 1,000 mls @ 125 mls/hr 12/30/22 05:25 12/31/22 17:59 Normal Saline Iv IV CONT 125 mls/hr .Q8H RIA Infusion Piperacillin Sod/Tazobactam 100 mls @ 200 mls/hr 12/30/22 18:00 12/31/22 17:59 Sod 4.5 gm/ Sodium Chloride IVPB Infused Q6H RIA Infusion Vancomycin HCl 1,500 mg in 500 mls @ 250 mls/hr 12/31/22 21:00 Vancomycin 1,500 Mg/D5w 500 Ml IVPB Q12H RIA Ibuprofen 600 mg 12/30/22 13:39 Ibuprofen 600 Mg Tablet PO Q6H PRN Pain or Fever Morphine Sulfate 2 mg 12/31/22 10:57 Morphine Sulfate (*Crx) 2 Mg/Ml Inj IV PUSH Q2H PRN Breakthrough Cornelio
[2022-12-31] MEDS: ONDANSETRON INJ 4 MG/2 ML VIAL IV PUSH (21:21)
[2022-12-31] MEDS: SENNA/DOCUSATE SODIUM TABLET 1 TAB PO (21:21)
[2023-01-01] MEDS: METOCLOPRAMIDE HCL INJ 10 MG/2 ML VIAL IV PUSH (00:01)
[2023-01-01] MEDS: PIPERACILLIN/TAZOBACTAM SOD 4.5 GM in SODIUM CHLORIDE 0.9% IV 100 ML IVPB ×5 (00:58→23:23)
[2023-01-01] MEDS: ONDANSETRON INJ 4 MG/2 ML VIAL IV PUSH ×2 (00:58→12:38)
[2023-01-01 02:00] VITALS: BP 99/72; PULSE 76; RESP 18; TEMP 36.2; O2SAT 95
[2023-01-01] MEDS: SODIUM CHLORIDE 0.9% IV 1,000 ML 125 ML IV CONT (04:43)
[2023-01-01 05:48] VITALS: BP 103/71; PULSE 88; RESP 18; TEMP 36.3; O2SAT 99
[2023-01-01 07:24] LABS: Basophils Percent Auto 0.2 % (0.2-1.2); Eosinophils Absolute Auto 0.1 K/mm3 (0-0.3); Eosinophils Percent Auto 0.7 % (0-4.4); Hematocrit 31.3 % (37.0-47.0); Hemoglobin 10.2 g/dL (12.0-15.0); Immature Granulocyte Absolute 0.14 K/mm3 (0.00-0.031); Immature Granulocyte Percent A 1.1 % (0-0.5); Lymphocytes Absolute Auto 1.68 K/mm3 (0.9-3.2); Lymphocytes Percent Auto 13.8 % (18.3-44.2); Mean Corpuscular HGB Conc 32.6 g/dl (32-36); Mean Corpuscular Hemoglobin 31.5 pg (26-34); Mean Corpuscular Volume 96.6 fl (80-100); Monocytes Absolute Auto 1.2 K/mm3 (0.1-0.6); Monocytes Percent Auto 9.8 % (2.6-8.5); Neutrophils Absolute Auto 9.1 K/mm3 (1.3-6.7); Neutrophils Percent Auto 74.4 % (45.5-73.1); Platelet Count Result 202 k/mm3 (150-375); Red Blood Count 3.24 M/mm3 (4.2-5.4); Red Cell Distribution Width 11.9 % (11.5-14.5); White Blood Count 12.2 K/mm3 (4.5-10.0)
[2023-01-01 08:00] LABS: Alanine Aminotransferase 26 U/L (6-35); Albumin Level 3.4 g/dL (3.5-5.1); Alkaline Phosphatase 97 U/L (38-126); Anion Gap 8 mmol/L (8-16); Aspartate Amino Transferase 20 U/L (14-36); Bilirubin,Total 0.6 mg/dL (0.2-1.3); Blood Urea Nitrogen 6 mg/dL (7-17); CRP 22.4 mg/dL (<1.0); Calcium 8.1 mg/dL (8.4-10.2); Carbon Dioxide 22 mmol/L (22-30); Chloride 111 mmol/L (98-107); Estimated CRCL calculation 58 ml/min; Estimated Glomerular Filt Rate 54; Glucose 97 mg/dL (65-110); Potassium 3.2 mmol/L (3.4-5.0); Sodium 141 mmol/L (137-145)
[2023-01-01 08:22] LABS: Procalcitonin 3.6 ng/mL
--- NOTE | 2023-01-01 09:14 | WPDANESPN ---
Anes - Prog Note Post-Op Date/Time: 01/01/23 09:14 Cardiovascular status: normal Respiratory status: normal Airway patency: baseline Mental status: baseline Post-Op hydration status: other (pt having difficulty taking po due to persistent nausea. ) Vital Signs: Last Vital Signs Temp 97.3 F L 01/01/23 05:48 Pulse 88 01/01/23 05:48 Resp 18 01/01/23 05:48 BP 103/71 01/01/23 05:48 Pulse Ox 99 01/01/23 05:48 O2 Del Method Room Air 12/31/22 08:20 O2 Flow Rate 8 12/30/22 16:45 Pain Score (VAS): 2 I/O: Intake & Output 12/31/22 01/01/23 01/01/23 23:59 07:59 15:59 Intake Total 1500 500 600 Balance 1500 500 600 Laboratory Tests 01/01/23 07:12 01/01/23 07:12 12/31/22 01/01/23 01/01/23 18:44 07:12 07:12 WBC RBC Hgb Hct MCV MCH MCHC RDW Plt Count MPV Immature Gran % (Auto) Neut % (Auto) Lymph % (Auto) [place] % (Auto) Eos % (Auto) Baso % (Auto) Lymph # (Auto) [place] # (Auto) Eos # (Auto) Baso # (Auto) Abs Immat Gran (auto) Absolute Neuts (auto) Absolute Nucleated RBC Nucleated RBC % Sodium 141 Potassium 3.2 L Chloride 111 H Carbon Dioxide 22 Anion Gap 8 BUN 6 L Creatinine 1.20 H Estim Creat Clear Calc 58 Estimated GFR 54 L Glucose 97 Calcium 8.1 L Total Bilirubin 0.6 AST 20 ALT 26 Alkaline Phosphatase 97 C-Reactive Protein 22.4 H Total Protein 7.0 Albumin 3.4 L Procalcitonin 3.6 Vancomycin Trough 14.1 01/01/23 07:12 WBC 12.2 H RBC 3.24 L Hgb 10.2 L Hct 31.3 L MCV 96.6 MCH 31.5 MCHC 32.6 RDW 11.9 Plt Count 202 MPV 9.0 Immature Gran % (Auto) 1.1 H Neut % (Auto) 74.4 H Lymph % (Auto) 13.8 L [place] % (Auto) 9.8 H Eos % (Auto) 0.7 Baso % (Auto) 0.2 Lymph # (Auto) 1.68 [place] # (Auto) 1.2 H Eos # (Auto) 0.1 Baso # (Auto) 0.0 Abs Immat Gran (auto) 0.14 H Absolute Neuts (auto) 9.1 H Absolute Nucleated RBC 0.0 Nucleated RBC % 0.0 Sodium Potassium Chloride Carbon Dioxide Anion Gap BUN Creatinine Estim Creat Clear Calc Estimated GFR Glucose Calcium Total Bilirubin AST ALT Alkaline Phosphatase C-Reactive Protein Total Protein Albumin Procalcitonin Vancomycin Trough Microbiology 12/30/ 01:30 Urine Clean Catch Urine Culture - Final Post-procedural complaints: nausea (nausea persists today. taking zofran. pt states she removed her scopalomine patch for unspecified reasons. encouraged non-narcotic regimine for discomfort due to persistent n/v on pod#2) Patient Feedback: Patient satisfied with anesthetic care.
--- NOTE | 2023-01-01 09:53 | PM.IMPN ---
Progress Note: A&P Assessment and Plan (1) Sepsis: Code(s): A41.9 - Sepsis, unspecified organism Status: Acute Assessment and Plan: HR 115, SBP 84, WBC 23, and CT abd/pelvis with concern for abdominal abscess from colitis versus recent surgery. Hypotension my be secondary to narcotics, but raises concerns for severe sepsis. Lactic acid 1.6 Given 1 L NS fluids in ED. Additional 1 L NS given upon admission to the floor for 30 mL/kg resuscitation. Continue aggressive IV hydration. Continue broad-spectrum IV antibiotics Vancomycin and Zosyn Monitor hemodynamics- VSS but BP soft Blood cultures without growth after 48 hours. (2) Abscess of pelvis: Status: Acute Assessment and Plan: Noted on CT scan. Continue broad spectrum IV antibiotics. No available culture from abscess drainage to narrow antibiotics. Attempted IR percutaneous drain placement, however, per Radiology, given location would need transvaginal route. Discussed with Dr. Ferrera. Patient and boyfriend updated. POD2 laparoscopy with abscess drainage No available culture from abscess drainage to narrow antibiotics. 01/01/23 WBC 12.2, CRP 22.4 and procalcitonin 3.6. Will continue IV antibiotics. Infection markers trending down but still elevated. consider transitioning to oral tomorrow if still afebrile x 24 hours. (3) Colitis: Code(s): K52.9 - Noninfective gastroenteritis and colitis, unspecified Status: Acute Assessment and Plan: GI consulted. On IV antibiotics. Colonoscopy not indicated at this time per GI. (4) Transaminitis: Code(s): R74.01 - Elevation of levels of liver transaminase levels Status: Resolved Assessment and Plan: Likely secondary to dehydration and sepsis Trend LFTs Resolved and presumed secondary to hypotension and sepsis. (5) Abnormal urinalysis: Code(s): R82.90 - Unspecified abnormal findings in urine Status: Acute Assessment and Plan: UA with 1+ leukocytes, WBC 21-50, 2+ bacteria, and moderate squamous cells. Given many squamous cells likely contamination. Patient has lower abdominal pain and back pain worse on the right, but this is more likely secondary to abscess. Currently on broad spectrum IV antibiotics for above. Urine culture without growth. Plan CODE STATUS: FULL CODE Disposition: patient is from home. Diet: Regular diet GI prophylaxis: PPI Antibiotic: Day 3 Time Spent With Patient Time with patient: 25 - 35 minutes Subjective Date/time seen: 01/01/23 09:53 Interval history: She had some nausea overnight that she attributes to not eating much yesterday and it is worse with lying down. Her back and lower abdominal pain is improved. No fevers, chills or rigors overnight. She reports one small bowel movement this morning. Review of Systems Review of Systems: All systems reviewed & are unremarkable except as noted in HPI and below Exam Narrative: General: Mildly ill-appearing adult female. Lying in bed. Neuro/Psych: Awake, alert and oriented x4 with clear speech. Pleasant and cooperative. No focal sensory or motor deficits. CN 2-12 grossly intact. Skin: fair, warm, dry and intact without rashes or lesions. No open wounds. Poor turgor.?Multiple tattoos. HEENT: Sclera is non-icteric. Pupils equal and round. Oral mucosa pink and moist. Neck: Supple. No JVD. Heart: S1 and S2 regular rate and rhythm. No murmurs, gallops, or rubs auscultated. Chest: Respirations even and unlabored. Lung sounds are clear to auscultation without wheezes, rhonchi, or rales. Abdomen: Soft, distended, diffusely tender to palpation Lap sites x3 open to air with dermabond. Extremities:? No edema, erythema or calf tenderness. Grossly normal ROM. Radial and dorsalis pedis pulses +2 bilaterally. Objective Data Vital Signs Vital Signs: Vital Signs - 24 hr 12/31/22 10:00 12/31/22 14:00 12/31/22 18:00 Temperature 97 F L 97 F L 97 F L
[2023-01-01 10:00] VITALS: BP 105/76; PULSE 82; RESP 18; TEMP 37.1; O2SAT 100
--- NOTE | 2023-01-01 12:08 | PM.GYNPNOP ---
RN X RAY - A/P Assessment and plan (1) Pelvic abscess: Status: Acute Plan Postoperative day 2 from diagnostic laparoscopy with drainage and lavage of pelvic abscess. This is a postoperative abscess from a previous endometriosis surgery. She seems to be recovering. Her white count is coming down. She is afebrile. She looks well and feels well. Will continue to observe. Await discharged by the medical team. Postoperative Procedures: Procedures Operation Date: 12/30/22 16:30 Actual Procedure Side Surgeon p Diagnostic Laparoscopy Not Applicable Eb Ferrera MD Postoperative day: 2 Postoperative status: doing well Postoperative plan: see orders Time Spent With Patient Time: Total time spent is greater than 50% in coordination of care (as documented) at patient's floor/unit and/or counseling patient: Time with patient: 15 - 25 minutes RN X RAY- PN:Anthony Post-Op Subjective Date/time seen: 01/01/23 12:08 Interval history: She had some nausea overnight that she attributes to not eating much yesterday and it is worse with lying down. Her back and lower abdominal pain is improved. No fevers, chills or rigors overnight. She reports one small bowel movement this morning. Subjective: patient reports feeling better, patient has no complaints and pain is well controlled Exam Const: General: healthy appearing, comfortable and no acute distress Resp: Auscultation: clear to auscultation bilaterally, no rales, no rhonchi and no wheezes Cardio: Rate: regular rate Heart sounds: no click, no murmurs and no rubs GI: Inspection: non-distended Auscultation: normal bowel sounds Extrem: General: normal to inspection, no pedal edema and no calf tenderness RN X RAY - PN: Obj Data Vital Signs Vital Signs: Vital Signs - 24 hr 12/31/22 14:00 12/31/22 18:00 12/31/22 21:37 Temperature 97 F L 97 F L 97.1 F L Pulse Rate 64 73 80 Respiratory Rate 17 17 18 Blood Pressure 94/68 L 96/70 L 92/54 L Pulse Oximetry 99 99 99 Oxygen Delivery 12/31/22 23:55 01/01/23 02:00 01/01/23 05:48 Temperature 97.4 F L 97.1 F L 97.3 F L Pulse Rate 93 76 88 Respiratory Rate 18 18 18 Blood Pressure 97/69 L 99/72 L 103/71 Pulse Oximetry 97 95 99 Oxygen Delivery 01/01/23 09:45 01/01/23 10:00 Temperature 98.7 F Pulse Rate 82 Respiratory Rate 18 Blood Pressure 105/76 Pulse Oximetry 100 Oxygen Delivery Room Air Intake/Output Intake/Output: Intake & Output 12/29/22 12/30/22 12/31/22 01/01/23 23:59 23:59 23:59 23:59 Intake Total 4950 3950 1340 Output Total 25 Balance 4925 3950 1340 Meds/Results Medications: Active Medications Generic Name Dose Route Start Last Admin Trade Name Freq PRN Reason Stop Dose Admin Acetaminophen 650 mg 12/31/22 10:57 Acetaminophen 325 Mg Tablet PO Q4H PRN Mild Pain (1-3) or Fever Hydrocodone Bitart/Acetaminophen 1 tab 12/31/22 10:55 12/31/22 21:21 Hydrocodone/Acetaminophen (*Crx) 5-325 Mg Tablet PO 1 tab Q4H PRN Administration Pain Rated 4-6 Bisacodyl 5 mg 12/31/22 08:24 Bisacodyl 5 Mg Tablet Ec PO QAM PRN Constipation Enoxaparin Sodium 40 mg 01/01/23 11:00 Enoxaparin 40 Mg/0.4 Ml Syringe SUB-Q DAILY RIA Piperacillin Sod/Tazobactam 100 mls @ 200 mls/hr 12/30/22 18:00 01/01/23 08:20 Sod 4.5 gm/ Sodium Chloride IVPB Infused Q6H RIA Infusion Vancomycin HCl 1,500 mg in 500 mls @ 250 mls/hr 12/31/22 21:00 01/01/23 09:48 Vancomycin 1,500 Mg/D5w 500 Ml IVPB 150 mls/hr Q12H RIA Administration Morphine Sulfate 2 mg 12/31/22 10:57 Morphine Sulfate (*Crx) 2 Mg/Ml Inj IV PUSH Q2H PRN Breakthrough Pain Ondansetron HCl 4 mg 12/30/22 05:24 01/01/23 00:58 Ondansetron Inj 4 Mg/2 Ml Vial IV PUSH 4 mg Q4H PRN Administration Nausea Pantoprazole Sodium 40 mg 01/02/23 09:00 Pantoprazole Sodium Iv 40 Mg Vial IV PUSH QAM RIA Senna/Docusate Sodium 1 tab 12/31/22 21:00
[2023-01-01] MEDS: ENOXAPARIN 40 MG/0.4 ML SYRINGE SUB-Q (12:39)
[2023-01-01 14:00] VITALS: BP 103/73; PULSE 81; RESP 18; TEMP 36.3; O2SAT 98
[2023-01-01 19:15] VITALS: O2SAT 100
[2023-01-01] MEDS: SENNA/DOCUSATE SODIUM TABLET 1 TAB PO (20:08)
[2023-01-01 20:14] LABS: Vancomycin Trough 23.4 ug/mL (10.0-20.0)
--- NOTE | 2023-01-01 20:17 | PC.NURSE ---
awaiting vancomycin trough results
[2023-01-01 21:28] VITALS: BP 110/80; PULSE 65; RESP 18; TEMP 36.2; O2SAT 100
[2023-01-02] MEDS: ONDANSETRON INJ 4 MG/2 ML VIAL IV PUSH ×2 (00:31→05:03)
[2023-01-02] MEDS: PIPERACILLIN/TAZOBACTAM SOD 4.5 GM in SODIUM CHLORIDE 0.9% IV 100 ML 200 ML IVPB (05:03)
[2023-01-02 05:19] VITALS: BP 111/76; PULSE 65; RESP 18; TEMP 36.3; O2SAT 97
[2023-01-02 06:50] LABS: Basophils Percent Auto 0.5 % (0.2-1.2); Eosinophils Absolute Auto 0.1 K/mm3 (0-0.3); Eosinophils Percent Auto 1.3 % (0-4.4); Hematocrit 30.3 % (37.0-47.0); Hemoglobin 10.1 g/dL (12.0-15.0); Immature Granulocyte Absolute 0.17 K/mm3 (0.00-0.031); Immature Granulocyte Percent A 2.3 % (0-0.5); Lymphocytes Absolute Auto 1.56 K/mm3 (0.9-3.2); Lymphocytes Percent Auto 20.7 % (18.3-44.2); Mean Corpuscular HGB Conc 33.3 g/dl (32-36); Mean Corpuscular Hemoglobin 31.8 pg (26-34); Mean Corpuscular Volume 95.3 fl (80-100); Mean Platelet Volume 8.6 fl (7.4-10.4); Monocytes Percent Auto 12.6 % (2.6-8.5); Neutrophils Absolute Auto 4.7 K/mm3 (1.3-6.7); Neutrophils Percent Auto 62.6 % (45.5-73.1); Platelet Count Result 176 k/mm3 (150-375); Red Blood Count 3.18 M/mm3 (4.2-5.4); White Blood Count 7.6 K/mm3 (4.5-10.0)
[2023-01-02 07:01] LABS: Alanine Aminotransferase 26 U/L (6-35); Albumin Level 3.1 g/dL (3.5-5.1); Alkaline Phosphatase 78 U/L (38-126); Anion Gap 6 mmol/L (8-16); Aspartate Amino Transferase 27 U/L (14-36); Bilirubin,Total 0.5 mg/dL (0.2-1.3); Blood Urea Nitrogen 3 mg/dL (7-17); Carbon Dioxide 24 mmol/L (22-30); Chloride 111 mmol/L (98-107); Estimated CRCL calculation 54 ml/min; Estimated Glomerular Filt Rate 50; Glucose 147 mg/dL (65-110); Potassium 2.9 mmol/L (3.4-5.0); Sodium 141 mmol/L (137-145)
--- NOTE | 2023-01-02 07:06 | PM.IMPN ---
Progress Note: A&P Assessment and Plan (1) Sepsis: Code(s): A41.9 - Sepsis, unspecified organism Status: Acute Assessment and Plan: HR 115, SBP 84, WBC 23, and CT abd/pelvis with concern for abdominal abscess from colitis versus recent surgery. Hypotension my be secondary to narcotics, but raises concerns for severe sepsis. Lactic acid 1.6 Given 1 L NS fluids in ED. Additional 1 L NS given upon admission to the floor for 30 mL/kg resuscitation. Continue aggressive IV hydration. Continue broad-spectrum IV antibiotics Vancomycin and Zosyn Monitor hemodynamics- VSS but BP soft Blood cultures without growth after 48 hours. (2) Abscess of pelvis: Status: Acute Assessment and Plan: Noted on CT scan. Continue broad spectrum IV antibiotics. No available culture from abscess drainage to narrow antibiotics. Attempted IR percutaneous drain placement, however, per Radiology, given location would need transvaginal route. Discussed with Dr. Ferrera. Patient and boyfriend updated. POD2 laparoscopy with abscess drainage No available culture from abscess drainage to narrow antibiotics. 01/01/23 WBC 12.2, CRP 22.4 and procalcitonin 3.6. Will continue IV antibiotics. Infection markers trending down but still elevated. consider transitioning to oral tomorrow if still afebrile x 24 hours. (3) Colitis: Code(s): K52.9 - Noninfective gastroenteritis and colitis, unspecified Status: Acute Assessment and Plan: GI consulted. On IV antibiotics. Colonoscopy not indicated at this time per GI. (4) Transaminitis: Code(s): R74.01 - Elevation of levels of liver transaminase levels Status: Resolved Assessment and Plan: Likely secondary to dehydration and sepsis Trend LFTs Resolved and presumed secondary to hypotension and sepsis. (5) Abnormal urinalysis: Code(s): R82.90 - Unspecified abnormal findings in urine Status: Acute Assessment and Plan: UA with 1+ leukocytes, WBC 21-50, 2+ bacteria, and moderate squamous cells. Given many squamous cells likely contamination. Patient has lower abdominal pain and back pain worse on the right, but this is more likely secondary to abscess. Currently on broad spectrum IV antibiotics for above. Urine culture without growth. Plan CODE STATUS: FULL CODE Disposition: patient is from home. Diet: Regular diet GI prophylaxis: PPI Antibiotic: Day 3 Subjective Date/time seen: 01/02/23 07:06 Review of Systems Review of Systems: All systems reviewed & are unremarkable except as noted in HPI and below Exam Narrative: General: Mildly ill-appearing adult female. Lying in bed. Neuro/Psych: Awake, alert and oriented x4 with clear speech. Pleasant and cooperative. No focal sensory or motor deficits. CN 2-12 grossly intact. Skin: fair, warm, dry and intact without rashes or lesions. No open wounds. Poor turgor.?Multiple tattoos. HEENT: Sclera is non-icteric. Pupils equal and round. Oral mucosa pink and moist. Neck: Supple. No JVD. Heart: S1 and S2 regular rate and rhythm. No murmurs, gallops, or rubs auscultated. Chest: Respirations even and unlabored. Lung sounds are clear to auscultation without wheezes, rhonchi, or rales. Abdomen: Soft, distended, diffusely tender to palpation Lap sites x3 open to air with dermabond. Extremities:? No edema, erythema or calf tenderness. Grossly normal ROM. Radial and dorsalis pedis pulses +2 bilaterally. Objective Data Vital Signs Vital Signs: Vital Signs - 24 hr 01/01/23 09:45 01/01/23 10:00 01/01/23 19:15 Temperature 98.7 F Pulse Rate 82 Respiratory Rate 18 Blood Pressure 105/76 Pulse Oximetry 100 100 Oxygen Delivery Room Air Room Air 01/01/23 14:00 01/01/23 21:28 01/02/23 05:19 Temperature 97.4 F L 97.1 F L 97.4 F L Pulse Rate 81 65 65 Respiratory Rate 18 18 18 Blood Pressure 103/73 110/80 111/76 Pulse Oximetry 98 100 97 Oxygen Delivery
[2023-01-02] MEDS: POTASSIUM CHLORIDE 20 MEQ TABLET 60 MEQ PO (07:15)
[2023-01-02 07:20] LABS: Magnesium 2.1 mg/dL (1.6-2.3)
--- NOTE | 2023-01-02 08:15 | PM.GYNPNOP ---
BANQUET BARTENDER - A/P Assessment and plan (1) Pelvic abscess: Status: Acute Plan 27-year-old female with pelvic abscess that was drained and lavaged on Monday, 3 days ago, postop day 3, much improved, normal white count, afebrile, ready to discharge per offc spec. Would suggest Levaquin and Flagyl for oral antibiotics post discharge. Postoperative Procedures: Procedures Operation Date: 12/30/22 16:30 Actual Procedure Side Surgeon p Diagnostic Laparoscopy Not Applicable Eb Ferrera MD Postoperative day: 3 Postoperative status: doing well Postoperative plan: see orders Time Spent With Patient Time: Total time spent is greater than 50% in coordination of care (as documented) at patient's floor/unit and/or counseling patient: Time with patient: 15 - 25 minutes BANQUET BARTENDER- PN:Anthony Post-Op Subjective Date/time seen: 01/02/23 08:15 Interval history: She had some nausea overnight that she attributes to not eating much yesterday and it is worse with lying down. Her back and lower abdominal pain is improved. No fevers, chills or rigors overnight. She reports one small bowel movement this morning. Subjective: patient reports feeling better, patient has no complaints and pain is well controlled Exam Const: General: healthy appearing, comfortable and no acute distress Resp: Auscultation: clear to auscultation bilaterally, no rales, no rhonchi and no wheezes Cardio: Rate: regular rate Heart sounds: no click, no murmurs and no rubs GI: Inspection: non-distended Auscultation: normal bowel sounds Extrem: General: normal to inspection, no pedal edema and no calf tenderness BANQUET BARTENDER - PN: Obj Data Vital Signs Vital Signs: Vital Signs - 24 hr 01/01/23 09:45 01/01/23 10:00 01/01/23 19:15 Temperature 98.7 F Pulse Rate 82 Respiratory Rate 18 Blood Pressure 105/76 Pulse Oximetry 100 100 Oxygen Delivery Room Air Room Air 01/01/23 14:00 01/01/23 21:28 01/02/23 05:19 Temperature 97.4 F L 97.1 F L 97.4 F L Pulse Rate 81 65 65 Respiratory Rate 18 18 18 Blood Pressure 103/73 110/80 111/76 Pulse Oximetry 98 100 97 Oxygen Delivery Intake/Output Intake/Output: Intake & Output 03/12/31/22 01/01/23 01/02/23 23:59 23:59 23:59 23:59 Intake Total 4950 3950 3590 650 Output Total 25 Balance 4925 3950 3590 650 Meds/Results Medications: Active Medications Generic Name Dose Route Start Last Admin Trade Name Freq PRN Reason Stop Dose Admin Acetaminophen 650 mg 12/31/22 10:57 Acetaminophen 325 Mg Tablet PO Q4H PRN Mild Pain (1-3) or Fever Hydrocodone Bitart/Acetaminophen 1 tab 12/31/22 10:55 12/31/22 21:21 Hydrocodone/Acetaminophen (*Crx) 5-325 Mg Tablet PO 1 tab Q4H PRN Administration Pain Rated 4-6 Bisacodyl 5 mg 12/31/22 08:24 Bisacodyl 5 Mg Tablet Ec PO QAM PRN Constipation Enoxaparin Sodium 40 mg 01/01/23 11:00 01/01/23 12:39 Enoxaparin 40 Mg/0.4 Ml Syringe SUB-Q 40 mg DAILY RIA Administration Vancomycin HCl 1,000 mg in 250 mls @ 250 mls/hr 01/02/23 09:00 Vancomycin 1,000 Mg/D5w 250 Ml IVPB Q12H RIA Morphine Sulfate 2 mg 12/31/22 10:57 Morphine Sulfate (*Crx) 2 Mg/Ml Inj IV PUSH Q2H PRN Breakthrough Pain Ondansetron HCl 4 mg 12/30/22 05:24 01/02/23 05:03 Ondansetron Inj 4 Mg/2 Ml Vial IV PUSH 4 mg Q4H PRN Administration Nausea Pantoprazole Sodium 40 mg 01/02/23 09:00 Pantoprazole Sodium Iv 40 Mg Vial IV PUSH QAM RIA Senna/Docusate Sodium 1 tab 12/31/22 21:00 01/01/23 20:08 Senna/Docusate Sodium Tablet PO 1 tab HS RIA Administration Radiology Results: ITS Impressions Abdomen/Pelvis CT 12/30/22 06:34 Impression: 5.7 x 4.1 x 2.7 cm pelvic abscess, with extensive wall thickening of the distal sigmoid colon/rectum, as well as somewhat prominent masslike appearance of the cervical region. Diagnostic considerations include postoperative abscess given history of
[2023-01-02] MEDS: ENOXAPARIN 40 MG/0.4 ML SYRINGE SUB-Q (09:49)
--- NOTE | 2023-01-02 10:33 | PM.DS ---
DS: Admitting Diagnosis Discharge Date 01/02/2023 Admitting Diagnosis SepsisAbscess of pelvis Colitis Transaminitis Abnormal urinalysis DS: Discharge Diagnosis Discharge Diagnosis (1) Sepsis: Code(s): A41.9 - Sepsis, unspecified organism Status: Acute (2) Abscess of pelvis: Status: Acute (3) Colitis: Code(s): K52.9 - Noninfective gastroenteritis and colitis, unspecified Status: Acute (4) Transaminitis: Code(s): R74.01 - Elevation of levels of liver transaminase levels Status: Resolved (5) Abnormal urinalysis: Code(s): R82.90 - Unspecified abnormal findings in urine Status: Acute Assessment and Plan: Asymptomatic bacteruria DS: Summary Hospital Course Reason for hospitalization: lower back pain Hospital Course: Betina Shrestha is a 27 yo female with recent radial resection endometriosis on 12/07/[address] Reyes. She presented to the ED for evaluation of abdominal pain. The patient was seen by Dr. Kraus yesterday 12/29/22 for evaluation of similar complaints and concern for constipation. Rectal exam was negative for impaction. She was prescribed Linzess and 4-6 week follow up. She reports the pain is sharp and aching in her lower back and radiates to her buttock region. She has associated right and left lower abdomen pain that has been present since her surgery. She reports fever for approximately 3 days, temp max 101F oral, chills, malaise, myalgias, nausea, vomiting, decrease oral intake for the past 2 days, hot sensation with urination and urinary frequency. She has had 2 hard stools since surgery on 12/07/22 and has taken a laxative chocolate bar, x-lax, other OTC stool softners, mag citrate, and suppository with some liquid stool in the past 24 hours. Of note, she had been taking oxycodone and toradol PO following surgery, but is no longer taking. Fevers improve with OTC acetaminophen. In the ED, vitals were temp 37.6C oral, HR 117, RR 20, BP 98/67, spO2 99% room air. Lab work showed leukocytosis 23.9, Tbili 1.4, AST 54, ALT 59, alk phos 133, UA with 1+ leukocytes, WBC 21-50, 2+ bacteria, and moderate squamous cells. CT abdomen and pelvis 5.7 x4.1 x2.7 cm pelvic abscess with extensive wall thickening of distal sigmoid colon/rectum with masslike appearance of cervix suggesting possible postop abscess versus abscess related to colitis and 2 mm nonobstructing right renal stone. She was treated with IV NS 1 liter, zofran 4 mg IV x1, compazine 10 mg IV x1, Rocephin 1 gram IV x1 for possible UTI, and Zosyn 3.375 IV x1. She was admitted for IV antibiotics for sepsis and abdominal abscess.? Sepsis, unspecified organism: On admission, HR 115, SBP 84, WBC 23, and CT abd/pelvis with concern for abdominal abscess from colitis versus recent surgery. Hypotension my be secondary to narcotics, but raises concerns for severe sepsis. Lactic acid 1.6 Given 1 L NS fluids in ED. Additional 1 L NS given upon admission to the floor for 30 mL/kg resuscitation. Continued aggressive IV hydration to keep SBP>90 and MAP>65 Continued broad-spectrum IV antibiotics Vancomycin pharmacy to dose and Zosyn 4.5 gm IV Q6 hours given recent surgery. Monitored hemodynamics- VSS but BP soft initially and improved with source control, antibiotics and fluids. Blood cultures without growth after 48 hours. Abscess of pelvis Noted on CT scan- 5.7 x 4.1 x 2.7 cm pelvic abscess, with extensive wall thickening of the distal sigmoid colon/rectum, as well as somewhat prominent masslike appearance of the cervical region Continued broad spectrum IV antibiotics. No available culture from abscess drainage to narrow antibiotics. Attempted IR percutaneous drain placement, however, per Radiology, given location would need transvaginal route. Discussed with Dr. Ferrera. Patient and boyfriend updated. 12/30/22 underwent laparoscopy with abscess drainage 01/01/23 WBC 12.2, CRP 22.4 and procalcitonin 3.6. Will continue IV ant
[2023-01-02] MEDS: levoFLOXacin 750 MG TABLET PO (11:00)
== END 2023-01-02 11:46 | disposition home or self-care (01) | DRG 855 ==
LOC: ANHED 12-30 05:29 → ANH3MEDSUR 12-30 06:12
PROVIDERS: Obstetrics & Gynecology; Admitting Provider Internal Medicine; Emergency Provider Emergency Medicine; PCP Family Medicine; Visit Provider Nurse Practitioner Family
PROC: 0DNP4ZZ Release Rectum, Percutaneous Endoscopic Approach (ICD-10-PCS; CPT 49320; principal; 2022-12-30 16:30)
DX: A41.9 Sepsis, unspecified organism (principal); N73.9 Female pelvic inflammatory disease, unspecified; K52.9 Noninfective gastroenteritis and colitis, unspecified; R74.01 Elevation of levels of liver transaminase levels; R82.71 Bacteriuria; F17.290 Nicotine dependence, other tobacco product, uncomplicated; E86.0 Dehydration
CPT/HCPCS: 36415; 74177; 80053; 80202; 81001; 81025; 83605; 83690; 83735; 84145; 85025; 86140; 87040; 87086; 87088; 93005; 96361; 96365; 96366; 96367; 96375; 96376; 99285; A9270; C9113; G0378; J0131; J0330; J0690; J0696; J0780; J1100; J1170; J1650; J1885; J2250; J2270; J2370; J2405; J2543; J2704; J2710; J2765; J3370; J7030; J7120; Q9967